=== PATIENT | male | born 1980 | race African-American/Black ===

== ENCOUNTER 2023-08-20 06:00 | Emergency (ER) | payer MEDICAID, OTHER ==
[~2023-08-20] VITALS: Ht 175.3 cm; Wt 82.6 kg
[2023-08-20 06:15] VITALS: BP 126/87; PULSE 59; RESP 18; TEMP 98
[2023-08-20] MEDS ORDERED: AZIT-43 PO (06:58)
[2023-08-20] MEDS ORDERED: IBUP1TAB5 PO (06:58)
[2023-08-20 07:07] VITALS: O2SAT 100
== END 2023-08-20 07:25 | disposition home or self-care (01) ==
LOC: ER 06:00
DX: H66.92 Otitis media, unspecified, left ear (principal); F15.90 Other stimulant use, unspecified, uncomplicated

== ENCOUNTER 2023-10-03 04:43 | Emergency (ER) | payer MEDICAID ==
[~2023-10-03] VITALS: Ht 175.3 cm; Wt 86.0 kg
[~2023-10-03 04:43] MED LIST: AZIT-43 PO; IBUP1TAB5 PO
[2023-10-03 04:47] VITALS: TEMP 97.7
[2023-10-03 04:52] VITALS: BP 158/108
[2023-10-03 05:01] VITALS: PULSE 62; RESP 15; O2SAT 98
[2023-10-03] MEDS ORDERED: IBUP-1456 PO (05:07)
[2023-10-03] MEDS ORDERED: ACET500T58 PO (05:17)
== END 2023-10-03 05:13 | disposition home or self-care (01) ==
LOC: ER 04:43
DX: H92.02 Otalgia, left ear (principal); F12.90 Cannabis use, unspecified, uncomplicated; Z79.1 Long term (current) use of non-steroidal anti-inflammatories (NSAID)

== ENCOUNTER 2024-03-27 18:58 | Emergency (ER) | payer MEDICAID ==
[~2024-03-27] VITALS: Ht 175.3 cm; Wt 82.4 kg
[~2024-03-27 18:58] MED LIST changes: +ACET500T58 PO
[2024-03-27] MEDS ORDERED: hydrALAZINE HCL 20 MG/ML VL IV ONE (19:45)
--- NOTE | 2024-03-27 19:52 | ED.PDOC ---
History of Present Illness HPI Comments 43 year old male presents to the ED with a chief complaint of high blood pressure onset today (03/27/2024). Patient states he was seen at [facility] 2 days ago, was told he had an ischemic stroke, was released the next day with a prescription of blood thinners and told to follow up with PCP. Patient states he has been checking BP at home, has been high and decided to come to ED. Upon assessment, BP was 171/102. Patient denies any other PMHx. Denies chest pain, headache, blurry vision, dizziness, chest pain, shortness of breath, cough, fever, nausea, vomiting, diarrhea. No other symptoms or modifying factors present at this time. Chief Complaint: High Blood Pressure Time Seen by MD: 19:28 Primary Care Provider: UNKNOWN Reviewed Notes: Medications, Allergies Allergies: Coded Allergies: NO KNOWN ALLERGIES (Unverified , 08/20/23) Home Meds Active Scripts Acetaminophen (Acetaminophen) 500 Mg Tab, 500 MG PO Q4HPRN, #30 TAB 0 Refills Prov:MERCY QUINTANILLA 10/03/23 Ibuprofen Micronized (Ibuprofen) 600 Mg Tab, 600 MG PO Q6HPRN PRN for 5 Days, #20 TAB Prov:DAMON MIRZAP 08/20/23 Azithromycin (Azithromycin) 250 Mg Tab, 250 MG PO DAILY MDD 500 for 5 Days, #6 TAB 0 Refills 2 TABLETS ORALLY ON DAY ONE, THEN 1 TABLET ORALLY DAILY FOR 4 DAYS Prov:DAMON MIRZA [facility] 08/20/23 Information Source: Patient, Spouse Mode of Arrival: Ambulatory Severity: Moderate Timing: Hours Duration: Since onset Prehospital treatment: None Past Medical History PAST MEDICAL HISTORY: CVA Surgical History: Denies all surgeries Family History Family History: Reviewed,noncontributory to illness Social History Smoker: Non-Smoker Alcohol: Denies ETOH Use Drugs: Marijuana Lives In: Home Constitutional: denies: chills, diaphoresis, fatigue, fever, malaise, sweats, weakness, others EENTM: denies: blurred vision, double vision, ear bleeding, ear discharge, ear drainage, ear pain, ear ringing, eye pain, eye redness, hearing loss, mouth pain, mouth swelling, nasal discharge, nose bleeding, nose congestion, nose pain, photophobia, tearing, throat pain, throat swelling, voice changes, others Respiratory: denies: cough, hemoptysis, orthopnea, SOB at rest, shortness of breath, SOB with excertion, stridor, wheezing, others Cardiovascular: reports: others (high BP); denies: chest pain, dizzy spells, diaphoresis, Dyspnea on exertion, edema, irregular heart beat, left arm pain, lightheadedness, palpitations, PND, syncope Gastrointestinal: denies: abdomen distended, abdominal pain, blood streaked bowels, constipated, diarrhea, dysphagia, difficulty swallowing, hematemesis, melena, nausea, poor appetite, poor fluid intake, rectal bleeding, rectal pain, vomiting, others Genitourinary: denies: burning, dysuria, flank pain, frequency, hematuria, incontinence, penile discharge, penile sore, pain, testicle pain, testicle swelling, urgency, others Neurological: denies: dizziness, fainting, headache, left sided numbness, left sided weakness, numbness, paresthesia, pre-existing deficit, right sided numbness, right sided weakness, seizure, speech problems, tingling, tremors, weakness, others Musculoskeletal: denies: back pain, gout, joint pain, joint swelling, muscle pain, muscle stiffness, neck pain, others Integumetry: denies: bruises, change in color, change in hair/nails, dryness, laceration, lesions, lumps, rash, wounds, others Allergic/Immunocompromised: denies: Difficulty Healing, Frequent Infections, Hives, Itching, others Hematologic/Lymphatic: denies: anemia, blood clots, easy bleeding, easy bruising, swollen glands, others Endocrine: denies: excessive hunger, excessive sweating, excessive thirst, excessive urination, flushing, intolerance to cold, intolerance to heat, unexplained weight gain, unexplained weight loss, others Psychiatric: denies: anxiety, bipolar disorder, depression, hopeless, panic disorder, schizophrenia, sleepless, suicidal, others All Other Systems: Reviewed and Negative Physical Exam General Appearance: No Apparent Distress, Normal HEENT: Normal ENT Inspection, Pharynx Normal, TMs Normal Neck: Full Range of Motion, Non-Tender, Normal, Normal Inspection Respiratory: Chest Non-Tender, Lungs Clear, No Accessory Muscle Use, No Respiratory Distress, Normal Breath Sounds Cardiovascular: No Edema, No JVD, No Murmur, No Gallop, Normal Peripheral Pulses, Regular Rate/Rhythm Breast Exam: Deferred Gastrointestinal: No Organomegaly, Non Tender, No Pulsatile Mass, Normal Bowel Sounds, Soft Genitalia: Deferred Pelvic: Deferred Rectal: Deferred Extremities: No calf tenderness, Normal capillary refill, Normal inspection, Normal range of motion, Non-tender, No pedal edema Musculoskeletal : Apperance: Normal Neurologic: Alert, certified pharmacist assistant II-XII nml as Tested, No Motor Deficits, Normal Affect, Normal Mood, No Sensory Deficits Cerebellar Function: Normal Reflexes: Normal Skin: Dry, Normal Color, Warm Lymphatic: No Adenopathy Was a procedure done? Was a procedure done?: No Differential Dx Considerations may include: Hypertensive emergency, electrolyte abnormality, viral syndrome, CVA X-Ray, Labs, Meds, VS Vital Signs Date Time Temp Pulse Resp B/P (MAP) Pulse Ox O2 Delivery O2 Flow Rate FiO2 03/27/24 23:14 84 155/82 03/27/24 21:41 98.0 84 16 155/102 (119) 95 98.0 03/27/24 20:35 74 20 98 Room Air* 0 21 03/27/24 20:34 148/104 03/27/24 20:16 60 14 148/104 (119) 95 03/27/24 19:23 97.8 69 18 171/102 (125) 98 Lab Test 03/27/24 21:08 03/27/24 19:44 Range/Units Troponin I High Sensitivity 8 8 </=54 ng/L White Blood Count 4.9 4.4-10.8 10^3/uL Red Blood Count 5.34 4.5-5.90 10^6/uL Hemoglobin 15.7 13.5-17.5 g/dL Hematocrit 45.8 41.0-53.0 % Mean Corpuscular Volume 85.6 80.0-100.0 fL Mean Corpuscular Hemoglobin 29.3 28.0-32.0 pg Mean Corpuscular Hemoglobin Concent 34.2 32.0-36.0 g/dL Red Cell Distribution Width 13.2 11.8-14.3 % Platelet Count 173 140-450 10^3/uL Mean Platelet Volume 9.6 6.9-10.8 fL Neutrophils (%) (Auto) 41.0 37.0-80.0 % Lymphocytes (%) (Auto) 45.9 10.0-50.0 % Monocytes (%) (Auto) 11.3 0.0-12.0 % Eosinophils (%) (Auto) 1.0 0.0-7.0 % Basophils (%) (Auto) 0.8 0.0-2.0 % Neutrophils # (Auto) 2.0 1.6-8.6 10 ^3/uL Lymphocytes # (Auto) 2.2 0.4-5.4 10 ^3/uL Monocytes # (Auto) 0.6 0-1.3 10 ^3/uL Eosinophils # (Auto) 0.1 0-0.8 10 ^3/uL Basophils # (Auto) 0 0-0.2 10 ^3/uL Nucleated Red Blood Cells 0.7 % Sodium Level 141 136-145 mmol/L Potassium Level 3.8 3.5-5.1 mmol/L Chloride Level 106 98-107 mmol/L Carbon Dioxide Level 28 20-31 mmol/L Anion Gap 7 5-15 Blood Urea Nitrogen 12 9-23 mg/dL Creatinine 1.13 0.700-1.30 mg/dL Glomerular Filtration Rate Calc 84 >90 mL/min BUN/Creatinine Ratio 10.6 10.0-20.0 Serum Glucose 96 74-106 mg/dL Calcium Level 10.3 8.7-10.4 mg/dL Current Medications Medications (Trade) Dose Ordered Sig/Payam Route Start Time Stop Time Status Last Admin Hydralazine HCl (Apresoline Injection) 20 mg ONCE ONCE IV 03/27/24 20:30 03/27/24 20:31 DC 03/27/24 20:34 Labetalol HCl (Labetalol HCl) 20 mg ONCE ONCE IV 03/27/24 23:00 03/27/24 23:01 DC 03/27/24 23:[address] [address] Ph: [phone] DIAGNOSTIC IMAGING Diagnostic Imaging Report : [id number] Signed PATIENT: JUAN JANG ACCT: [id number] UNIT: [id number] : 1980 LOC: ER ROOM / BED: / AGE / SEX: 43 / M ADM STATUS: REG ER SERVICE 34 ORDERING PHYSICIAN: SAJI VORA MD PROCEDURE(s): CXRP - CHEST PORTABLE REASON: htn, ams, recent cva ORDER NUMBER(s): [id number], ACCESSION NUMBER(s): [id number] CHEST RADIOGRAPH Indication: htn, ams, recent cva Technique: Single frontal view of the chest was obtained Comparison: None FINDINGS: Lines and Tubes: None Lungs: No focal consolidation. Pleura: No effusion. No pneumothorax. Cardiomediastinal contours: Unremarkable Bones: No acute osseous abnormality. IMPRESSION: No acute cardiopulmonary disease. ATED BY: HI CHANG MD DICTATED DATE/TIME: 03/27/242024 SIGNED BY: HI CHANG MD SIGNED DATE/TIME: 03/27/242024 CC: [place] [id number] Ph: [phone] DIAGNOSTIC IMAGING Diagnostic Imaging Report : [id number] Signed PATIENT: JUAN JANG ACCT: [id number] UNIT: [id number] : 1980 LOC: ER ROOM / BED: / AGE / SEX: 43 / M ADM STATUS: REG ER SERVICE 34 ORDERING PHYSICIAN: SAJI VORA MD PROCEDURE(s): HWOCT - HEAD WITHOUT CONTRAST REASON: recent cva, htn, ams ORDER NUMBER(s): [id number], ACCESSION NUMBER(s): [id number] EXAM: CT HEAD WITHOUT CONTRAST INDICATION: recent cva, htn, ams TECHNIQUE: CT of the head without intravenous contrast. Radiation Dose Information: CT Dose: CTDI volume is 58.01 mGy. Dose-length product is 929.92 mGy*cm The dose indicators for CT are the volume Computed Tomography (CT) Dose Index (CTDIvol) and the Dose Length Product (DLP), and are measured in units of mGy and mGy-cm, respectively. These indicators are not patient dose, but values generated from the CT scanner acquisition factors. The report includes radiation exposure data for exposures received during this examination. COMPARISON: None FINDINGS: There is no evidence of acute intracranial hemorrhage, extra-axial collection, mass effect, midline shift, herniation or hydrocephalus. The ventricles, sulci and cisterns are age appropriate. The kyle-white differentiation is intact. Patchy periventricular and subcortical white matter hypoattenuation is nonspe cific but may be related to small vessel ischemic disease. The visualized paranasal sinuses and mastoid air cells are clear. The surrounding soft tissues and osseous structures are unremarkable. IMPRESSION: 1. No acute intracranial hemorrhage 2. No CT findings of displaced skull fracture. 3. No CT findings of territorial ischemia ATED BY: COBY MORIN Jr., DO DICTATED DATE/TIME: 03/27/242000 SIGNED BY: COBY MORIN Jr., SIGNED DATE/TIME: 03/27/242000 CC: Time of 1ST Reevaluation: 19:58 Reevaluation 1ST: Unchanged Patient Education/Counseling: Diagnosis, Treatment, Prognosis Family Education/Counseling: Diagnosis, Treatment, Prognosis Additional Information The following tests were ordered, and results were reviewed by me: BMP, CBC, TROP -x3, UA, XY CHEST, CT HEAD WO CONTRAST, EKG -x3 Additional Information was gathered from interviewing the following independent historians: I reviewed and agreed with the following test results read by other providers: XY CHEST, CT HEAD WO CONTRAST, I discussed treatment and results with medical personnel and: patient, Departure 1 Departure Time of Disposition: 23:17 (Patient presented with hypertension and symptoms concerning for hypertensive emergency. Patient is receiving iv blood pressure medications requiring intensive monitoring. Data: 1. I ordered and reviewed the result of at least 3 labs including a CBC, BMP, and Urinalysis. 2. I independently interpreted the following tests: CT Brain: Which appears benign. EKG which is Normal Sinus RhythmRisk:This patient has a high risk of morbidity due to further diagnostic testing or treatment and may suffer from an acute cardiac disorder. Workup reveals hypertensive emergency and patient should be admitted for further workup. and possible expert consultation. ) Impression: Primary Impression: Hypertensive emergency Additional Impression: Generalized weakness Disposition: ADMITTED INPATIENT Admit to: Med Surg Condition: Serious Critical Care Note Critical Care Time?: Yes Critical care comment: Hypertensive emergency Authorized and Performed by: Saji Vora MD Total critical care time: Approximately 34 minutes Due to a high probability of clinically significant, life threatening deterio ration, the patient required my highest level of preparedness to intervene emergently and I personally spent this critical care time directly and personally managing the patient. This critical care time included obtaining a history; examining the patient; pulse oximetry; ordering and review of studies; arranging urgent treatment with development of a management plan; evaluation of patient's response to treatment; frequent reassessment; and, discussions with other providers. This critical care time was performed to assess and manage the high probability of imminent, life-threatening deterioration that could result in multi-organ failure. It was exclusive of separately billable procedures and treating other patients and teaching time. Please see my other sections and the rest of the note for further information on patient assessment and treatment. Stability Stability form required: No I personally scribed for SAJI VORA MD ([email or web address]) on 03/27/24 at 19:52. Electronically submitted by Rosa Valero ([email or web address]). I personally scribed for SAJI VORA MD ([email or web address]) on 03/27/24 at 22:05. Electronically submitted by Rosa Valero ([email or web address]). SAJI VORA MD Mar 27, 2024 19:52
[2024-03-27 19:58] LABS: Basophils # (auto) 0 10 ^3/uL (0-0.2); Basophils % (auto) 0.8 % (0.0-2.0); Eosinophils # (auto) 0.1 10 ^3/uL (0-0.8); Hematocrit 45.8 % (41.0-53.0); Hemoglobin 15.7 g/dL (13.5-17.5); Lymphocytes # (auto) 2.2 10 ^3/uL (0.4-5.4); Lymphocytes % (auto) 45.9 % (10.0-50.0); Mean Corpuscular Hemoglobin 29.3 pg (28.0-32.0); Mean Corpuscular Hgb Conc. 34.2 g/dL (32.0-36.0); Mean Corpuscular Volume 85.6 fL (80.0-100.0); Monocytes # (auto) 0.6 10 ^3/uL (0-1.3); Monocytes % (auto) 11.3 % (0.0-12.0); Nucleated Red Blood Cells % 0.7 %; Platelet Count (auto) 173 10^3/uL (140-450); Red Blood Cells 5.34 10^6/uL (4.5-5.90); Red Cell Distribution Width 13.2 % (11.8-14.3); White Blood Cell 4.9 10^3/uL (4.4-10.8)
--- NOTE | 2024-03-27 20:03 | DVH ---
EXAM: CT HEAD WITHOUT CONTRAST INDICATION: recent cva, htn, ams TECHNIQUE: CT of the head without intravenous contrast. Radiation Dose Information: CT Dose: CTDI volume is 58.01 mGy. Dose-length product is 929.92 mGy*cm The dose indicators for CT are the volume Computed Tomography (CT) Dose Index (CTDIvol) and the Dose Length Product (DLP), and are measured in units of mGy and mGy-cm, respectively. These indicators are not patient dose, but values generated from the CT scanner acquisition factors. The report includes radiation exposure data for exposures received during this examination. COMPARISON: None FINDINGS: There is no evidence of acute intracranial hemorrhage, extra-axial collection, mass effect, midline s hift, herniation or hydrocephalus. The ventricles, sulci and cisterns are age appropriate. The kyle-white differentiation is intact. Patchy periventricular and subcortical white matter hypoattenuation is nonspecific but may be related to small vessel ischemic disease. The visualized paranasal sinuses and mastoid air cells are clear. The surrounding soft tissues and osseous structures are unremarkable. IMPRESSION: 1. No acute intracranial hemorrhage 2. No CT findings of displaced skull fracture. 3. No CT findings of territorial ischemia
[2024-03-27 20:05] LABS: Chloride 106 mmol/L (98-107); Potassium 3.8 mmol/L (3.5-5.1); Sodium 141 mmol/L (136-145)
[2024-03-27 20:06] LABS: Anion Gap 7 (5-15); Calcium 10.3 mg/dL (8.7-10.4); Carbon Dioxide 28 mmol/L (20-31)
[2024-03-27 20:11] LABS: BUN/Creatinine Ratio 10.6 (10.0-20.0); Blood Urea Nitrogen 12 mg/dL (9-23); Glucose 96 mg/dL (74-106)
--- NOTE | 2024-03-27 20:27 | DVH ---
CHEST RADIOGRAPH Indication: htn, ams, recent cva Technique: Single frontal view of the chest was obtained Comparison: None FINDINGS: Lines and Tubes: None Lungs: No focal consolidation. Pleura: No effusion. No pneumothorax. Cardiomediastinal contours: Unremarkable Bones: No acute osseous abnormality. IMPRESSION: No acute cardiopulmonary disease.
[2024-03-27] MEDS: hydrALAZINE HCL 20 MG/ML VL IV ONE (20:34)
[2024-03-27 20:35] VITALS: PULSE 74; RESP 20; O2SAT 98
[2024-03-27 21:41] VITALS: TEMP 98
[2024-03-27] MEDS: LABETALOL HCL 20 MG/4 ML VL IV ONE (23:14)
[2024-03-27 23:39] VITALS: BP 121/87; PULSE 100; RESP 18; O2SAT 97
== END 2024-03-28 01:23 | disposition left against medical advice (07) ==
LOC: ER 19:05
DX: I16.1 Hypertensive emergency (principal); R53.1 Weakness; R41.82 Altered mental status, unspecified; Z86.73 Personal history of transient ischemic attack (TIA), and cerebral infarction without residual deficits
CPT/HCPCS: 36415; 70450; 71045; 80048; 84484; 85025; 96374; 96375; 99291; J0360